=== PATIENT | male | born 1990 | race American Indian/Alaskan Native ===

== ENCOUNTER 2021-01-30 22:11 | Emergency (ER) | payer OTHER ==
[2021-01-30 22:48] VITALS: BP 132/52
--- NOTE | 2021-01-30 23:13 | Emergency Department Report ---
ED General Adult HPI - General Chief complaint: Fall Stated complaint: SHOULDER PAIN/ETOH Time Seen by Provider: 01/30/21 23:08 Source: police Mode of arrival: Ambulatory Limitations: No Limitations - History of Present Illness Initial comments: 30-year-old -[place] male patient presents in police custody for right shoulder and arm pain today. Police state patient is intoxicated with alcohol and marijuana and that when he was placed into handcuffs, he began to complain of right shoulder and arm pain. Patient is a poor historian and is unable to describe the injury to his right arm and shoulder. -: Sudden - Related Data Previous Rx's Medication Instructions Recorded Last Taken Type Diclofenac Dr [Emir Sumner] 75 mg PO Q12H #30 tablet 02/12/14 Unknown Rx Allergies Allergy/AdvReac Type Severity Reaction Status Date / Time No Known Allergies Allergy Unverified 02/12/14 21:09 ED Review of Systems ROS: Stated complaint: SHOULDER PAIN/ETOH Other details as noted in HPI Respiratory: denies: shortness of breath Cardiovascular: denies: chest pain Gastrointestinal: denies: abdominal pain Musculoskeletal: arthralgia ED Past Medical Hx - Social History Smoking Status: Unknown if ever smoked Substance Use Type: Alcohol - Medications Home Medications: Home Medications Medication Instructions Recorded Confirmed Last Taken Type Diclofenac Dr [Voltaren ] 75 mg PO Q12H #30 tablet 02/12/14 Unknown Rx ED Physical Exam - General Limitations: No Limitations General appearance: alert, appears intoxicated - Head Head exam: Present: atraumatic, normocephalic - Eye Eye exam: Absent: scleral icterus - Respiratory Respiratory exam: Present: normal lung sounds bilaterally. Absent: respiratory distress - Cardiovascular Cardiovascular Exam: Present: regular rate, normal rhythm - Back Exam Back exam: Present: full ROM - Neurological Exam Neurological exam: Present: alert, oriented X3 - Skin Skin exam: Present: warm, dry, intact, normal color. Absent: rash, cyanosis, diaphoretic ED Course Vital Signs 01/30/21 22:41 Temperature 98 F Pulse Rate 92 H Respiratory 18 Rate Blood Pressure 132/52 O2 Sat by Pulse 99 Oximetry ED Medical Decision Making - Radiology Data Radiology results: report reviewed RIGHT SHOULDER 3 VIEWS INDICATION / CLINICAL INFORMATION: pain after injury COMPARISON: None available. FINDINGS: BONES / JOINT(S): No acute fracture or subluxation. No significant arthritis. SOFT TISSUES: No significant abnormality. ADDITIONAL FINDINGS: None. RIGHT HUMERUS 2 VIEWS INDICATION / CLINICAL INFORMATION: pain after injury COMPARISON: None available. FINDINGS: BONES / JOINT(S): No acute fracture or subluxation. No significant arthritis. SOFT TISSUES: No significant abnormality. RIGHT FOREARM 2 VIEWS INDICATION / CLINICAL INFORMATION: pain after injury COMPARISON: None available. FINDINGS: BONES / JOINT(S): No acute fracture or subluxation. No significant arthritis. SOFT TISSUES: No significant abnormality. ADDITIONAL FINDINGS: None. - Medical Decision Making 30-year-old -[place] male patient presents in police custody for right shoulder and arm pain today. Police state patient is intoxicated with alcohol and marijuana and that when he was placed into handcuffs, he began to complain of right shoulder and arm pain. Patient is a poor historian and is unable to describe the injury to his right arm and shoulder. X-rays are negative for any acute bony abnormalities. Patient is medically cleared. Critical care attestation.: If time is entered above; I have spent that time in minutes in the direct care of this critically ill patient, excluding procedure time. ED Disposition Clinical Impression: Right shoulder pain Qualifiers: Chronicity: acute Qualified Code(s): M25.511 - Pain in right shoulder Disposition: DC-01 TO HOME OR SELFCARE Is pt being admited?: No Condition: Stable Instructions: Shoulder Pain Referrals: [facility] [Provider Group] - 3-5 Days
--- NOTE | 2021-01-31 00:03 | XRay Report ---
RIGHT FOREARM 2 VIEWS INDICATION / CLINICAL INFORMATION: pain after injury COMPARISON: None available. FINDINGS: BONES / JOINT(S): No acute fracture or subluxation. No significant arthritis. SOFT TISSUES: No significant abnormality. ADDITIONAL FINDINGS: None. Signer Name: Mannie Erwin MD Signed: 01/30/2021 11:59 PM Workstation Name: [id number]
--- NOTE | 2021-01-31 00:04 | XRay Report ---
RIGHT SHOULDER 3 VIEWS INDICATION / CLINICAL INFORMATION: pain after injury COMPARISON: None available. FINDINGS: BONES / JOINT(S): No acute fracture or subluxation. No significant arthritis. SOFT TISSUES: No significant abnormality. ADDITIONAL FINDINGS: None. Signer Name: Mannie Erwin MD Signed: 01/31/2021 12:00 AM Workstation Name: [id number]
--- NOTE | 2021-01-31 00:05 | XRay Report ---
RIGHT HUMERUS 2 VIEWS INDICATION / CLINICAL INFORMATION: pain after injury COMPARISON: None available. FINDINGS: BONES / JOINT(S): No acute fracture or subluxation. No significant arthritis. SOFT TISSUES: No significant abnormality. ADDITIONAL FINDINGS: None. Signer Name: Mannie Erwin MD Signed: 01/31/2021 12:01 AM Workstation Name: [id number]
== END 2021-01-31 00:30 | disposition home or self-care (01) ==
LOC: EEVIPCON 22:11 → ED 22:11
DX: M25.511 Pain in right shoulder (principal); Z79.899 Other long term (current) drug therapy